=== PATIENT | female | born 1985 | race Caucasian/White ===

== ENCOUNTER 2023-11-04 11:50 | Emergency (ER) | payer OTHER, SELFPAY ==
[2023-11-04 11:56] VITALS: BP 136/98; PULSE 107; RESP 18; TEMP 36.7; O2SAT 100; BMI 25.6
--- NOTE | 2023-11-04 12:07 | ECG_ITS ---
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
--- NOTE | 2023-11-04 12:15 | ED.PSYCH1 ---
HPI - Psych General Chief Complaint: Anxiety Stated Complaint: MENTAL ISSUES Time Seen by Provider: 11/04/23 12:00 Source: Reports patient and family Mode of arrival: walk-in Limitations: Reports no limitations History of Present Illness HPI Narrative: This patient is here with her complaining of extreme stress and anxiety. She is dealt with depression and stress issues for many many years. She has been institutionalized in the past. She told her primary care doctor that she actually thought about taking her life. Currently she denies that but she says she just cannot deal with the situations in her life anymore. She Head: Some of her psych medicines discontinued several weeks ago because elevation of her liver function test and they did not want take any chances. She said that those tests have come back down to normal that she is aware of. She is requesting something for anxiety and stress right now. She admits to daily THC use she does not use alcohol products but she does use tobacco products. No other street drugs are used. Related Data Home Medications Medication Instructions Recorded Confirmed citalopram 40 mg tablet 40 mg PO DAILY 11/04/23 11/04/23 gabapentin 800 mg tablet 800 mg PO TID 11/04/23 11/04/23 lamotrigine 100 mg tablet 200 mg PO DAILY 11/04/23 11/04/23 (Lamictal) oxycodone-acetaminophen 5 mg-325 1 tab PO Q12H PRN pain 11/04/23 11/04/23 mg tablet trazodone 50 mg tablet 50 mg PO BEDTIME 11/04/23 11/04/23 Allergies Allergy/AdvReac Type Severity Reaction Status Date / Time Iodinated Contrast Media AdvReac Mild Verified 11/04/23 11:54 metoclopramide [From Reglan] AdvReac Mild Verified 11/04/23 11:54 prochlorperazine AdvReac Mild Verified 11/04/23 11:54 [From Compazine] [facility] Social History Smoking status: Current every day smoker Exam Narrative Exam Narrative: Patient is awake alert good hygiene maintains good eye contact has a normal affect at this time. She is not labile or irritated. Her is present in the room and they are interacting appropriately. On HEENT there is no evidence of meningeal irritation head injury or trauma. Pupillary light response is normal. She does not smell intoxicated. The neck is soft and supple. Her lungs are clear with no wheeze rales or rhonchi. Heart sounds are normal with no S3-S4 or murmur. She has no abdominal pain. Her trunk torso and extremities are atraumatic. Skin is warm and dry with no pallor or anemia. Neurological she has no focal neurological findings her ambulation and gait are normal. Cognition and memory are also good. Constitutional Vital Signs, click to edit/add: Last Vital Signs Temp 98.1 F 11/04/23 11:56 Pulse 107 H 11/04/23 11:56 Resp 18 11/04/23 11:56 BP 136/98 H 11/04/23 11:56 Pulse Ox 100 11/04/23 11:56 O2 Del Method Room Air 11/04/23 11:56 Course Vital Signs Vital signs: Vital Signs Temperature 98.1 F 11/04/23 11:56 Pulse Rate 107 H 11/04/23 11:56 Respiratory Rate 18 11/04/23 11:56 Blood Pressure 136/98 H 11/04/23 11:56 Pulse Oximetry 100 11/04/23 11:56 Oxygen Delivery Method Room Air 11/04/23 11:56 Temperature 98.1 F 11/04/23 11:56 Pulse Rate 107 H 11/04/23 11:56 Respiratory Rate 18 11/04/23 11:56 Blood Pressure 136/98 H 11/04/23 11:56 Pulse Oximetry 100 11/04/23 11:56 Oxygen Delivery Method Room Air 11/04/23 11:56 MDM - Psych MDM Narrative Medical decision making narrative: After examining her we did have her speak with a mental health professional. At this time she denies any interest in taking her life or harming others at this time. She is says that she wants her problems to go away. Her confirms that information. She then had a conversation with the [facility]. The [facility] spoke with the on-call physician and they are open to admission and advised that but they said they were not going to pink slip her. The is committed to me and the patient that he will stay with her for 25/04 and return should there be any problems. I also encouraged that she discontinue the use of marijuana products. Incidentally she does have opiates in her urine she says she was taking that for her arthritis pain it was prescribed by a physician Lab Data Labs: Lab Results 11/04/23 11/04/23 11/04/23 Range/Units 12:10 12:54 13:14 WBC 4.5 (4.0-11.0) 10^3/uL RBC 4.65 (4.20-5.40) 10^6/uL Hgb 14.2 (12.0-16.0) g/dL Hct 43.3 (36.0-48.0) % MCV 93.1 (81.0-99.0) fL MCH 30.5 (26.7-34.0) pg MCHC 32.8 (29.9-35.2) g/dL RDW 12.5 (11.0-15.0) % Plt Count 164 (150-450) 10^3/uL MPV 10.6 (9.5-13.5) fL Neut % (Auto) 40.5 L (43.0-75.0) % Lymph % (Auto) 44.7 (20.5-60.0) % [place] % (Auto) 11.3 (1.7-12.0) % Eos % (Auto) 3.1 (0.9-7.0) % Baso % (Auto) 0.4 (0.2-2.0) % Neut # (Auto) 1.8 (1.4-6.5) 10^3/uL Lymph # (Auto) 2.0 (1.2-3.8) 10^3/uL [place] # (Auto) 0.5 (0.3-0.8) 10^3/uL Eos # (Auto) 0.1 (0.0-0.7) 10^3/uL Baso # (Auto) 0.0 (0.0-0.1) 10^3/uL Abs Immat Gran (auto) 0.00 (0.00-0.03) 10^3/uL Imm/Tot Granulo (auto) 0.0 (0.0-0.5) % Sodium 133 L (136-145) mmol/L Potassium 4.1 (3.5-5.1) mmol/L Chloride 103 (98-107) mmol/L Carbon Dioxide 22.0 (21.0-32.0) mmol/L Anion Gap 12.1 BUN 6.0 L (7.0-18.0) mg/dL Creatinine 0.63 (0.55-1.02) mg/dL Est GFR ( Amer) >60 (>=60) Est GFR (Non-Af Amer) >60 (>=60) BUN/Creatinine Ratio 9.5 Glucose 76 (74-106) mg/dL Calcium 9.2 (8.5-10.1) mg/dL Total Bilirubin 0.3 (0.2-1.0) mg/dL AST <5 L (15-37) U/L ALT <6 L (14-59) U/L Alkaline Phosphatase 86 (46-116) U/L Total Protein 7.7 (6.4-8.2) g/dL Albumin <0.6 L (3.4-5.0) g/dL Globulin 7.1 g/dL Albumin/Globulin Ratio 0.1 Urine Color Lt. yellow (YELLOW) Urine Clarity Clear (CLEAR) Urine pH 6.5 (5.0-9.0) Ur Specific [place] <=1.005 A (1.005-1.025) Urine Protein Negative (NEG/TRACE) mg/dL Urine Glucose (UA) Negative (NEGATIVE) mg/dL Urine Ketones Negative (NEGATIVE) mg/dL Urine Occult Blood Negative (NEGATIVE) Urine Nitrite Negative (NEGATIVE) Urine Bilirubin Negative (NEGATIVE) Urine Urobilinogen 0.2 (0.2-1.0) EU/dL Ur Leukocyte Esterase Negative (NEGATIVE) Urine Opiates Screen Positive A (NEGATIVE) Ur Buprenorphine Scrn Negative (NEGATIVE) Ur Oxycodone Screen Negative (NEGATIVE) Urine Methadone Screen Negative (NEGATIVE) Acetaminophen <2.0 L (10.0-30.0) ug/mL Ur Barbiturates Screen Negative (NEGATIVE) U Tricyclic Antidepress Negative (NEGATIVE) Ur Phencyclidine Scrn Negative (NEGATIVE) Ur Amphetamines Screen Negative (NEGATIVE) U Methamphetamines Scrn Negative (NEGATIVE) U Benzodiazepines Scrn Positive A (NEGATIVE) Urine Cocaine Screen Negative (NEGATIVE) U Cannabinoids Screen Positive A (NEGATIVE) Ethanol Quant <3 mg/dL Discharge Plan Discharge Chief Complaint: Anxiety Clinical Impression: Anxiety Patient Disposition: Home, Self-Care Time of Disposition Decision: 15:42 Prescriptions / Home Meds: No Action lamotrigine [Lamictal] 100 mg tablet 200 mg PO DAILY citalopram 40 mg tablet 40 mg PO DAILY gabapentin 800 mg tablet 800 mg PO TID oxycodone-acetaminophen 5-325 mg tablet 1 tab PO Q12H PRN (Reason: pain) trazodone 50 mg tablet 50 mg PO BEDTIME Additional Instructions: Ativan 0.5 mg 3 times daily. Stay with your spouse 25 04, follow-up with [facility] next week, return for any problems Stand Alone Forms: Portal Instructions Referrals: Yadira Schmid MD [Primary Care Provider] - 1 week
[2023-11-04] MEDS: LORAZEPAM 2 MG/ML 1 ML VIAL IM (12:56)
[2023-11-04 13:02] LABS: Bilirubin Urine NEGATIVE (NEGATIVE); Blood Urine NEGATIVE (NEGATIVE); Clarity Urine CLEAR (CLEAR); Color Urine LT. YELLOW (YELLOW); Glucose Urine UA NEGATIVE (NEGATIVE); Ketones Urine NEGATIVE (NEGATIVE); Leukocyte Esterase Urine NEGATIVE (NEGATIVE); Nitrite Urine NEGATIVE (NEGATIVE); Protein Urine NEGATIVE (NEG/TRACE); Specific Gravity Urine <=1.005 (1.005-1.025); Urobilinogen Urine 0.2 EU/dL (0.2-1.0); pH Urine 6.5 (5.0-9.0)
[2023-11-04 13:03] LABS: Urine Microscopic Indicated NO
[2023-11-04 13:20] LABS: Alanine Aminotransferase <6 U/L (14-59); Albumin Globulin Ratio 0.1; Albumin Level <0.6 g/dL (3.4-5.0); Alkaline Phosphatase 86 U/L (46-116); Anion Gap 12.1; Aspartate Amino Transferase <5 U/L (15-37); BUN Creatinine Ratio 9.5; Bilirubin Total 0.3 mg/dL (0.2-1.0); Calcium 9.2 mg/dL (8.5-10.1); Chloride 103 mmol/L (98-107); Estimated GFR (African America >60 (>=60); Estimated GFR (Non-African Ame >60 (>=60); Globulin 7.1 g/dL; Glucose 76 mg/dL (74-106); Potassium 4.1 mmol/L (3.5-5.1); Sodium 133 mmol/L (136-145); Total Protein 7.7 g/dL (6.4-8.2)
[2023-11-04 13:21] LABS: Basophils Percent Auto 0.4 % (0.2-2.0); Eosinophils Absolute Auto 0.1 10^3/uL (0.0-0.7); Eosinophils Percent Auto 3.1 % (0.9-7.0); Hematocrit 43.3 % (36.0-48.0); Hemoglobin 14.2 g/dL (12.0-16.0); Lymphocytes Percent Auto 44.7 % (20.5-60.0); Mean Corpuscular HGB Conc 32.8 g/dL (29.9-35.2); Mean Corpuscular Hemoglobin 30.5 pg (26.7-34.0); Mean Corpuscular Volume 93.1 fL (81.0-99.0); Mean Platelet Volume 10.6 fL (9.5-13.5); Monocytes Absolute Auto 0.5 10^3/uL (0.3-0.8); Monocytes Percent Auto 11.3 % (1.7-12.0); Neutrophils Absolute Auto 1.8 10^3/uL (1.4-6.5); Neutrophils Percent Auto 40.5 % (43.0-75.0); Platelet Count 164 10^3/uL (150-450); Red Blood Count 4.65 10^6/uL (4.20-5.40); Red Cell Distribution Width 12.5 % (11.0-15.0); White Blood Count 4.5 10^3/uL (4.0-11.0)
[2023-11-04 13:23] LABS: Amphetamine Screen Urine NEGATIVE (NEGATIVE); Cannabinoid Screen Urine POSITIVE (NEGATIVE); Cocaine Screen Urine NEGATIVE (NEGATIVE); Methamphetamines Screen Urine NEGATIVE (NEGATIVE); Opiate Screen Urine POSITIVE (NEGATIVE); Phencyclidine Screen Urine NEGATIVE (NEGATIVE)
[2023-11-04 13:24] LABS: Barbiturates Screen Urine NEGATIVE (NEGATIVE); Benzodiazepines Screen Urine POSITIVE (NEGATIVE); Buprenorphine Screen Urine NEGATIVE (NEGATIVE); Methadone Screen Urine NEGATIVE (NEGATIVE); Oxycodone Screen Urine NEGATIVE (NEGATIVE); Tricyclic Antidepressant Urine NEGATIVE (NEGATIVE)
[2023-11-04 13:41] LABS: Ethanol <3 mg/dL
[2023-11-04 13:55] LABS: Acetaminophen <2.0 ug/mL (10.0-30.0)
[2023-11-04 15:45] VITALS: BP 115/74; PULSE 92; RESP 16; O2SAT 98
[2023-11-04 15:54] VITALS: BP 115/74; PULSE 85; RESP 16; O2SAT 98
== END 2023-11-04 15:59 | disposition home or self-care (01) ==
PROVIDERS: Emergency Provider Emergency Medicine Emergency Medical Services; PCP Family Medicine
DX: F41.9 Anxiety disorder, unspecified (principal); F12.90 Cannabis use, unspecified, uncomplicated; Z79.899 Other long term (current) drug therapy; F17.210 Nicotine dependence, cigarettes, uncomplicated
CPT/HCPCS: 36415; 80053; 80307; 80320; 80329; 81003; 85025; 87811; 93005; 96374; 99285; J2060

== ENCOUNTER 2024-01-30 11:19 | Emergency (ER) | payer OTHER, SELFPAY ==
[2024-01-30 11:22] VITALS: BP 117/83; PULSE 104; O2SAT 98; BMI 28.3
--- NOTE | 2024-01-30 11:40 | CT_ITS ---
The [address] [address] Patient Name: CRYS LAUREANO MRN: [id number] date: 1985 Sex: F Assigned Patient Location: ER Current Patient Location: ER Accession/Order Number: [id number] Exam Date: 01/30/2024 12:08 Report Date: 01/30/2024 12:56 At the request of: STEPHON URIBE Procedure: CT abdomen pelvis wo con EXAM: CT abdomen pelvis wo con HISTORY: Rt flank pain COMPARISON: CT abdomen and CT pelvis studies dated 08/12/2022 TECHNIQUE: CT abdomen and CT pelvis studies were performed without the use of intravenous contrast. FINDINGS: Small bilateral pleural effusions. Likely minimal atelectatic and/or fibrotic changes in the lower lung mark. Mild pleural thickening suggested on the left. Views of the liver and spleen fail to demonstrate evidence of focal mass in either organ. Patient is status post cholecystectomy. Pancreas and adrenal glands appear grossly unremarkable. Stomach appears grossly unremarkable. Bowel loops appear grossly unremarkable. Visualized vascular structures appear grossly intact. No lymphadenopathy in the retroperitoneum. Mild prominence of the right upper collecting system and proximal ureter similar to the prior study, no obvious obstructing calculus or mass. Correlate to exclude possible recently passed calculus from the right kidney. Correlate to exclude early and/or mild right pyelonephritis. No obvious renal calculus or mass on either side. Mild subcutaneous edema posteriorly. Pelvis: No evidence of ureteral or bladder calculus. No evidence of obstructive uropathy. No obvious bladder mass or wall thickening. Patient status post hysterectomy. No obvious adnexal mass. Small amount of free intraperitoneal fluid suggested superior to the bladder which is nonspecific. Perirectal fat planes appear grossly intact. Mild wall thickening of the sigmoid colon which may be artifactually created, correlate to exclude mild colitis. Visualized vascular structures appear grossly intact. No lymphadenopathy. The appendix is not identified, no obvious appendicitis. Postoperative sutures at the cecal base which may relate to prior appendectomy. Mild degenerative changes visualized lower dorsal spine with minimal degenerative changes in the lumbar spine. Calcifications in the posterior subcutaneous tissue on the left and to a lesser degree on the right compatible with injection granulomas. CT/CT abdomen pelvis wo con IMPRESSION: CT abdomen and CT pelvis studies demonstrate mild nonspecific wall thickening of the colon which may be artifactually created, correlate to exclude mild colitis. Small amount of free intraperitoneal fluid in the pelvis which is nonspecific. Mild right hydronephrosis and proximal right hydroureter similar to prior study which may be related to recently passed calculus, correlate to exclude early and/or mild pyelonephritis on the right. No obvious obstructing calculus or mass in the right ureter. Small bilateral pleural effusions. Mild subcutaneous edema posteriorly. Findings compatible with calcified injection granulomas in the posterior subcutaneous tissue at the pelvic level greater on the left as noted. Electronically authenticated by: JACINTO DAVIS Date: 01/30/2024 12:56
[2024-01-30 11:45] LABS: Basophils Absolute Auto 0.1 10^3/uL (0.0-0.1); Basophils Percent Auto 0.5 % (0.2-2.0); Eosinophils Absolute Auto 0.3 10^3/uL (0.0-0.7); Eosinophils Percent Auto 3.3 % (0.9-7.0); Hematocrit 41.9 % (36.0-48.0); Hemoglobin 13.8 g/dL (12.0-16.0); Immature Granulocytes Abs Auto 0.04 10^3/uL (0.00-0.03); Immature Granulocytes Pct Auto 0.4 % (0.0-0.5); Lymphocytes Absolute Auto 1.9 10^3/uL (1.2-3.8); Lymphocytes Percent Auto 18.4 % (20.5-60.0); Mean Corpuscular HGB Conc 32.9 g/dL (29.9-35.2); Mean Corpuscular Hemoglobin 30.2 pg (26.7-34.0); Mean Corpuscular Volume 91.7 fL (81.0-99.0); Mean Platelet Volume 9.5 fL (9.5-13.5); Monocytes Absolute Auto 0.4 10^3/uL (0.3-0.8); Monocytes Percent Auto 3.9 % (1.7-12.0); Neutrophils Absolute Auto 7.5 10^3/uL (1.4-6.5); Neutrophils Percent Auto 73.5 % (43.0-75.0); Platelet Count 252 10^3/uL (150-450); Red Blood Count 4.57 10^6/uL (4.20-5.40); Red Cell Distribution Width 12.8 % (11.0-15.0); White Blood Count 10.1 10^3/uL (4.0-11.0)
[2024-01-30 11:55] LABS: Bilirubin Urine NEGATIVE (NEGATIVE); Blood Urine LARGE (NEGATIVE); Clarity Urine CLEAR (CLEAR); Color Urine YELLOW (YELLOW); Glucose Urine UA NEGATIVE (NEGATIVE); Ketones Urine NEGATIVE (NEGATIVE); Leukocyte Esterase Urine NEGATIVE (NEGATIVE); Nitrite Urine NEGATIVE (NEGATIVE); Protein Urine NEGATIVE (NEG/TRACE); Urobilinogen Urine 0.2 EU/dL (0.2-1.0)
[2024-01-30 11:56] LABS: Urine Microscopic Indicated YES
[2024-01-30 11:57] LABS: HCG Qualitative Urine* NEGATIVE (NEGATIVE)
[2024-01-30] MEDS: MORPHINE SULFATE 2 MG/ML SYRINGE 1 MG IV (11:57)
[2024-01-30] MEDS: 0.9 % SODIUM CHLORIDE 1,000 ML 1000 ML IV (11:57)
[2024-01-30 11:58] LABS: Alanine Aminotransferase 38 U/L (14-59); Alkaline Phosphatase 121 U/L (46-116); Aspartate Amino Transferase 29 U/L (15-37); BUN Creatinine Ratio 14.7; Bilirubin Total 0.4 mg/dL (0.2-1.0); Calcium 9.6 mg/dL (8.5-10.1); Carbon Dioxide 29.8 mmol/L (21.0-32.0); Chloride 101 mmol/L (98-107); Estimated GFR (African America >60 (>=60); Estimated GFR (Non-African Ame >60 (>=60); Globulin 4.1 g/dL; Glucose 96 mg/dL (74-106); Potassium 3.8 mmol/L (3.5-5.1); Sodium 138 mmol/L (136-145); Total Protein 8.1 g/dL (6.4-8.2)
[2024-01-30 12:04] LABS: Amphetamine Screen Urine NEGATIVE (NEGATIVE); Barbiturates Screen Urine NEGATIVE (NEGATIVE); Benzodiazepines Screen Urine NEGATIVE (NEGATIVE); Buprenorphine Screen Urine NEGATIVE (NEGATIVE); Cannabinoid Screen Urine POSITIVE (NEGATIVE); Cocaine Screen Urine NEGATIVE (NEGATIVE); Methadone Screen Urine NEGATIVE (NEGATIVE); Methamphetamines Screen Urine NEGATIVE (NEGATIVE); Opiate Screen Urine NEGATIVE (NEGATIVE); Oxycodone Screen Urine NEGATIVE (NEGATIVE); Phencyclidine Screen Urine NEGATIVE (NEGATIVE); Tricyclic Antidepressant Urine NEGATIVE (NEGATIVE)
[2024-01-30 12:13] LABS: Bacteria Urine TRACE #/HPF (NONE SEEN); Cast Seen? NONE SEEN #/LPF (NONE SEEN); Crystals Seen? None Seen #/HPF (None Seen); Mucus Urine NONE SEEN (NONE SEEN); RBC Urine 20-50 #/HPF (0-2); Squamous Epithelial Cell Urine RARE #/LPF (NONE/RARE); Urine Culture Indicated NO; WBC Urine 0-2 #/HPF (NONE SEEN)
[2024-01-30] MEDS: ONDANSETRON PF 4 MG/2 ML VIAL IV (12:32)
[2024-01-30 12:35] VITALS: BP 102/64; PULSE 71; O2SAT 97
[2024-01-30] MEDS: OXYCODONE HCL/ACETAMINOPHEN 5MG/325MG 1 TAB PO (13:15)
--- NOTE | 2024-01-30 13:44 | ED_ITS ---
HPI - Abdominal Pain General Chief Complaint: Abdominal Pain Stated Complaint: ABDOMINAL/BACK PAIN Time Seen by Provider: 01/30/24 11:26 Source: patient Mode of arrival: walk-in Limitations: no limitations History of Present Illness HPI narrative: the pt is coming with 4-5 days of RT lower quadrant pain . The patient did had some nausea and vomiting but there is no diarrhea she mentioned no burning with urination. Related Data Home Medications ?Medication ?Instructions ?Recorded ?Confirmed citalopram 40 mg tablet 40 mg PO DAILY 11/04/23 11/04/23 gabapentin 800 mg tablet 800 mg PO TID 11/04/23 01/30/24 lamotrigine 100 mg tablet 200 mg PO DAILY 11/04/23 01/30/24 (Lamictal) trazodone 50 mg tablet 50 mg PO BEDTIME 11/04/23 01/30/24 docusate sodium 100 mg capsule 100 mg PO DAILY 01/30/24 01/30/24 hydroxyzine HCl 50 mg tablet 50 mg PO DAILY 01/30/24 01/30/24 omeprazole 20 mg capsule,delayed mg 01/30/24 release omeprazole 40 mg capsule,delayed 40 mg PO DAILY 01/30/24 01/30/24 release Previous Rx's ?Medication ?Instructions ?Recorded cephalexin 500 mg capsule 500 mg PO TID 7 days #21 caps 01/30/24 tramadol 50 mg tablet 50 mg PO BID PRN pain 2 days #4 01/30/24 tabs Allergies Allergy/AdvReac Type Severity Reaction Status Date / Time Iodinated Contrast Media AdvReac Mild Verified 01/30/24 11:25 metoclopramide [From Reglan] AdvReac Mild Verified 01/30/24 11:25 prochlorperazine AdvReac Mild Verified 01/30/24 11:25 [From Compazine] Review of Systems ROS Status of ROS 10 or more systems reviewed and unremark able except as noted in history and below PFSH PFS Social History Smoking status: Current every day smoker Exam Narrative Exam Narrative: Nurses notes and vital signs reviewed and patient is not hypoxic. General: Well-appearing and in no apparent distress. Skin: Warm, dry, no pallor noted. No rash. Head: Normocephalic, atraumatic. Neck: Supple, non-tender. Eye: Pupils are equal, round and EOMI. No scleral icterus. Ears, Nose, Mouth, and Throat: TM are clear, no nasal mucosal hypertrophy. Oral mucosa is moist, no posterior oropharynx erythema, uvula is mid-line Cardiovascular: Regular Rate and Rhythm without murmur, gallop or rub. Respiratory: No accessory muscle use or respiratory distress. Lungs are clear to auscultation, no wheezing, rales or rhonchi Chest Wall: no tenderness Back: No midline thoracic or lumbar vertebral tenderness. rt cva tenderness Musculoskeletal: normal ROM, no calf or popliteal tenderness, no lower extremity edema/swelling GI: Abdomen is soft, non-distended. Normal bowel sounds. No masses appreciated. No tenderness to palpation. No rebound, guarding, or rigidity noted. Neurological: A&O x4. No cranial nerve dysfunction observed. No truncal narciso [place]. Moves all extremities. Sensation intact. Psychiatric: Cooperative and interactive. Normal mood and affect. Constitutional Vital Signs, click to edit/add: Last Vital Signs Pulse 71 01/30/24 12:35 Resp 18 01/30/24 12:35 BP 102/64 01/30/24 12:35 Pulse Ox 97 01/30/24 12:35 O2 Del Method Room Air 01/30/24 12:35 Course Vital Signs Vital signs: Vital Signs Pulse Rate 104 H 01/30/24 11:22 Respiratory Rate 20 01/30/24 11:22 Blood Pressure 117/83 01/30/24 11:22 Pulse Oximetry 98 01/30/24 11:22 Oxygen Delivery Method Room Air 01/30/24 11:22 Pulse Rate 71 01/30/24 12:35 Respiratory Rate 18 01/30/24 12:35 Blood Pressure 102/64 01/30/24 12:35 Pulse Oximetry 97 01/30/24 12:35 Oxygen Delivery Method Room Air 01/30/24 12:35 MDM - Abdominal Pain MDM Narrative Medical decision making narrative: The patient CBC and chemistry showed no acute significant pathology but the urine did show some RBCs CAT scan of the abdomen and pelvis showed that the patient have some hydronephrosis that was seen on previous CAT scan and there is no kidney stone The patient instructed to follow-up with urology as outpatient as she already have an appointment she also was provided with Keflex as a coverage for possible urinary tract infection and tramadol for 2 days of pain management The patient is to follow up with primary care physician in next 2-3 days or to return to the emergency department should any of the signs or symptoms worsen or new symptoms develop. The patient agrees with the following Diagnosis and Treatment plan and the patient will be discharged home. Lab Data Labs: Lab Results 01/30/24 01/30/24 Range/Units 11:31 11:40 WBC 10.1 (4.0-11.0) 10^3/uL RBC 4.57 (4.20-5.40) 10^6/uL Hgb 13.8 (12.0-16.0) g/dL Hct 41.9 (36.0-48.0) % MCV 91.7 (81.0-99.0) fL MCH 30.2 (26.7-34.0) pg MCHC 32.9 (29.9-35.2) g/dL RDW 12.8 (11.0-15.0) % Plt Count 252 (150-450) 10^3/uL MPV 9.5 (9.5-13.5) fL Neut % (Auto) 73.5 (43.0-75.0) % Lymph % (Auto) 18.4 L (20.5-60.0) % [place] % (Auto) 3.9 (1.7-12.0) % Eos % (Auto) 3.3 (0.9-7.0) % Baso % (Auto) 0.5 (0.2-2.0) % Neut # (Auto) 7.5 H (1.4-6.5) 10^3/uL Lymph # (Auto) 1.9 (1.2-3.8) 10^3/uL [place] # (Auto) 0.4 (0.3-0.8) 10^3/uL Eos # (Auto) 0.3 (0.0-0.7) 10^3/uL Baso # (Auto) 0.1 (0.0-0.1) 10^3/uL Abs Immat Gran (auto) 0.04 H (0.00-0.03) 10^3/uL Imm/Tot Granulo (auto) 0.4 (0.0-0.5) % Sodium 138 (136-145) mmol/L Potassium 3.8 (3.5-5.1) mmol/L Chloride 101 (98-107) mmol/L Carbon Dioxide 29.8 (21.0-32.0) mmol/L Anion Gap 11.0 BUN 11.0 (7.0-18.0) mg/dL Creatinine 0.75 (0.55-1.02) mg/dL Est GFR ( Amer) >60 (>=60) Est GFR (Non-Af Amer) >60 (>=60) BUN/Creatinine Ratio 14.7 Glucose 96 (74-106) mg/dL Calcium 9.6 (8.5-10.1) mg/dL Total Bilirubin 0.4 (0.2-1.0) mg/dL AST 29 (15-37) U/L ALT 38 (14-59) U/L Alkaline Phosphatase 121 H (46-116) U/L Total Protein 8.1 (6.4-8.2) g/dL Albumin 4.0 (3.4-5.0) g/dL Globulin 4.1 g/dL Albumin/Globulin Ratio 1.0 Urine Color Yellow (YELLOW) Urine Clarity Clear (CLEAR) Urine pH 8.0 (5.0-9.0) Ur Specific [place] 1.010 (1.005-1.025) Urine Protein Negative (NEG/TRACE) mg/dL Urine Glucose (UA) Negative (NEGATIVE) mg/dL Urine Ketones Negative (NEGATIVE) mg/dL Urine Occult Blood Large A (NEGATIVE) Urine Nitrite Negative (NEGATIVE) Urine Bilirubin Negative (NEGATIVE) Urine Urobilinogen 0.2 (0.2-1.0) EU/dL Ur Leukocyte Esterase Negative (NEGATIVE) Urine RBC 20-50 A (0-2) #/HPF Urine WBC 0-2 A (NONE SEEN) #/HPF Ur Squamous Epith Cells Rare (NONE/RARE) #/LPF Urine Crystals None seen (None Seen) #/HPF Urine Bacteria Trace A (NONE SEEN) #/HPF Urine Casts None seen (NONE SEEN) #/LPF Urine Mucus None seen (NONE SEEN) Ur Culture Indicated? No Urine HCG, Qual Negative (NEGATIVE) Urine Opiates Screen Negative (NEGATIVE) Ur Buprenorphine Scrn Negative (NEGATIVE) Ur Oxycodone Screen Negative (NEGATIVE) Urine Methadone Screen Negative (NEGATIVE) Ur Barbiturates Screen Negative (NEGATIVE) U Tricyclic Antidepress Negative (NEGATIVE) Ur Phencyclidine Scrn Negative (NEGATIVE) Ur Amphetamines Screen Negative (NEGATIVE) U Methamphetamines Scrn Negative (NEGATIVE) U Benzodiazepines Scrn Negative (NEGATIVE) Urine Cocaine Screen Negative (NEGATIVE) U Cannabinoids Screen Positive A (NEGATIVE) Discharge Plan Discharge Stand Alone Forms: Portal Instructions Chief Complaint: Abdominal Pain Clinical Impression: Acute flank pain Patient Disposition: Home, Self-Care Time of Disposition Decision: 13:06 Condition: Good Prescriptions / Home Meds: New tramadol 50 mg tablet 50 mg PO BID PRN (Reason: pain) 2 Days Qty: 4 0RF cephalexin 500 mg capsule 500 mg PO TID 7 Days Qty: 21 0RF No Action lamotrigine [Lamictal] 100 mg tablet 200 mg PO DAILY citalopram 40 mg tablet 40 mg PO DAILY gabapentin 800 mg tablet 800 mg PO TID trazodone 50 mg tablet 50 mg PO BEDTIME docusate sodium 100 mg capsule 100 mg PO DAILY hydroxyzine HCl 50 mg tablet 50 mg PO DAILY omeprazole 40 mg capsule,delayed release(DR/EC) 40 mg PO DAILY omeprazole 20 mg capsule,delayed release(DR/EC) Print Language: Brazilian Instructions: Flank Pain (ED) Referrals: Yadira Schmid MD [Primary Care Provider] - 1 week Discharge Date/Time: 01/30/24 13:17
== END 2024-01-30 13:17 | disposition home or self-care (01) ==
PROVIDERS: Emergency Provider Emergency Medicine; PCP Family Medicine
DX: Z79.899 Other long term (current) drug therapy (principal); F17.210 Nicotine dependence, cigarettes, uncomplicated; R10.9 Unspecified abdominal pain
CPT/HCPCS: 36415; 74176; 80053; 80307; 81001; 84703; 85025; 96361; 96374; 96375; 99284

== ENCOUNTER 2024-09-10 10:50 | Emergency (ER) | payer OTHER, SELFPAY ==
[2024-09-10 10:53] VITALS: BP 128/91; PULSE 94; TEMP 36.6; O2SAT 99; BMI 25.2
--- NOTE | 2024-09-10 11:07 | XR_ITS ---
The [place] [id number] Patient Name: CRYS LAUREANO MRN: [id number] date: 1985 Sex: F Assigned Patient Location: ER Current Patient Location: ER Accession/Order Number: [id number] Exam Date: 09/10/2024 11:09 Report Date: 09/10/2024 11:46 At the request of: BHARATH VIDAL Procedure: XR thoracic spine 3V EXAMINATION: XR lumbar spine min 4V, XR thoracic spine 3V HISTORY: fall , back pain COMPARISON: CT abdomen pelvis 01/30/2024, XR chest 08/12/2022 FINDINGS: BONES: Moderate loss of height of approximately T9 vertebral body. DISC SPACES: No significant disc height narrowing, subluxation, or endplate abnormality. PARASPINOUS: Negative. No paraspinous abnormality is seen. OTHER: Negative. XR/XR thoracic spine 3V IMPRESSION: 1. T9 moderate compression fracture; age indeterminant but new compared to 08/12/2022 chest x-ray. 2. No acute abnormality or significant degenerative changes of the lumbar spine. Electronically authenticated by: LILLY MEDINA Date: 09/10/2024 11:46
--- NOTE | 2024-09-10 11:07 | XR_ITS ---
The [place] [address] Patient Name: CRYS LAUREANO MRN: [id number] date: 1985 Sex: F Assigned Patient Location: ER Current Patient Location: ER Accession/Order Number: [id number] Exam Date: 09/10/2024 11:08 Report Date: 09/10/2024 11:46 At the request of: BHARATH VIDAL Procedure: XR lumbar spine min 4V EXAMINATION: XR lumbar spine min 4V, XR thoracic spine 3V HISTORY: fall , back pain COMPARISON: CT abdomen pelvis 01/30/2024, XR chest 08/12/2022 FINDINGS: BONES: Moderate loss of height of approximately T9 vertebral body. DISC SPACES: No significant disc height narrowing, subluxation, or endplate abnormality. PARASPINOUS: Negative. No paraspinous abnormality is seen. OTHER: Negative. XR/XR lumbar spine min 4V IMPRESSION: 1. T9 moderate compression fracture; age indeterminant but new compared to 08/12/2022 chest x-ray. 2. No acute abnormality or significant degenerative changes of the lumbar spine. Electronically authenticated by: LILLY MEDINA Date: 09/10/2024 11:46
--- NOTE | 2024-09-10 11:07 | XR_ITS ---
The [address] [address] Patient Name: CRYS LAUREANO MRN: [id number] date: 1985 Sex: F Assigned Patient Location: ER Current Patient Location: ER Accession/Order Number: [id number] Exam Date: 09/10/2024 11:10 Report Date: 09/10/2024 11:40 At the request of: BHARATH VIDAL Procedure: XR hip RT 2V w/ pelvis PROCEDURE: XR hip RT 2V w/ pelvis HISTORY: fall , pain COMPARISON: CT abdomen pelvis 01/30/2024 FINDINGS: BONES:No fracture, dislocation, bone lesion. Stable small calcification along superior rim of right acetabulum (also seen on prior CT study) favoring developing degenerative osteophyte versus sequela of remote injury. SOFT TISSUES:Dense calcification projecting over upper left pelvis is a calcified granuloma within posterior gluteal tissues. EFFUSION:None visible. OTHER: Negative. XR/XR hip RT 2V w/ pelvis IMPRESSION: 1. No acute bone abnormality. Electronically authenticated by: LILLY MEDINA Date: 09/10/2024 11:40
--- NOTE | 2024-09-10 11:09 | ED_ITS ---
HPI HPI - General Adult General Chief complaint: Back Pain/Injury Stated complaint: back pain Time Seen by Provider: 09/10/24 10:56 Source: patient Mode of arrival: walk-in Limitations: no limitations History of Present Illness HPI narrative: Patient presented to the emergency department for evaluation of hip and back pain. Patient states that she was here visiting someone, will come to the parking lot, to go [place] in the car and tripped over the sidewalk. Patient states that she landed on the right side of her hip. States that her back twisted in the process and now she has pain in the right side of the thoracic back. No numbness, tingling, weakness, bowel or bladder incontinence, has been ambulating well since, ambulated into the emergency department Related Data Home Medications ?Medication ?Instructions ?Recorded ?Confirmed citalopram 40 mg tablet 40 mg PO DAILY 11/04/23 11/04/23 gabapentin 800 mg tablet 800 mg PO TID 11/04/23 01/30/24 lamotrigine 100 mg tablet 200 mg PO DAILY 11/04/23 01/30/24 (Lamictal) trazodone 50 mg tablet 50 mg PO BEDTIME 11/04/23 01/30/24 docusate sodium 100 mg capsule 100 mg PO DAILY 01/30/24 01/30/24 hydroxyzine HCl 50 mg tablet 50 mg PO DAILY 01/30/24 01/30/24 omeprazole 20 mg capsule,delayed mg 01/30/24 release omeprazole 40 mg capsule,delayed 40 mg PO DAILY 01/30/24 01/30/24 release Previous Rx's ?Medication ?Instructions ?Recorded cephalexin 500 mg capsule 500 mg PO TID 7 days #21 caps 01/30/24 tramadol 50 mg tablet 50 mg PO BID PRN pain 2 days #4 01/30/24 tabs hydrocodone 5 mg-acetaminophen 325 1 tab PO Q6H PRN pain #14 tabs 09/10/24 mg tablet naproxen 500 mg tablet 500 mg PO Q12H PRN pain #20 tabs 09/10/24 Allergies Allergy/AdvReac Type Severity Reaction Status Date / Time Iodinated Contrast Media AdvReac Mild Verified 01/30/24 11:25 metoclopramide (From Reglan) AdvReac Mild Verified 01/30/24 11:25 prochlorperazine (From AdvReac Mild Verified 01/30/24 11:25 Compazine) Opioid HPI Opioid Management Most Recent Opioid Data: Last Pain Scale 8 09/10/24 11:24 09/10/24 Last MAR Pain Assessment 09/10/24 11:24 Ur Phencyclidine Scrn Negative (NEGATIVE) 01/30/24 11:40 0406/26 Review of Systems ROS Narrative Negative unless otherwise stated in HPI PFSH PFSH Social History Smoking status: Current every day smoker Little interest or pleasure in doing things: not at all Feeling down, depressed, or hopeless: not at all Exam Narrative Exam Narrative: General: NAD, AAOx3, no distress Neck: Supple, no tenderness Back: Paraspinal tenderness to the mid thoracic as well as lower thoracic approximately T10 tenderness midline, lumbar pain on the right side paraspinal, positive EHL bilaterally, normal distal reflexes, sensation, no perineal or saddle anesthesia, normal rectal tone reported Ext: No abnormal range of motion, no swelling. 5 out of 5 strength, no numbness, tingling, weakness Neuro: Speech is clear and appropriate. Normal level of consciousness. Gait and coordination are normal. 5/5 strength in all extremities. Constitutional Vital Signs, click to edit/add: Last Vital Signs Temp 98 F 09/10/24 10:53 Pulse 94 H 09/10/24 10:53 Resp 18 09/10/24 10:53 BP 128/91 09/10/24 10:53 Pulse Ox 99 09/10/24 10:53 O2 Del Method Room Air 09/10/24 10:53 Course Vital Signs Vital signs: Vital Signs Temperature 98 F 09/10/24 10:53 Pulse Rate 94 H 09/10/24 10:53 Respiratory Rate 18 09/10/24 10:53 Blood Pressure 128/91 09/10/24 10:53 Pulse Oximetry 99 09/10/24 10:53 Oxygen Delivery Method Room Air 09/10/24 10:53 Temperature 98 F 09/10/24 10:53 Pulse Rate 94 H 09/10/24 10:53 Respiratory Rate 18 09/10/24 10:53 Blood Pressure 128/91 09/10/24 10:53 Pulse Oximetry 99 09/10/24 10:53 Oxygen Delivery Method Room Air 09/10/24 10:53 Medical Decision Making [facility] Narrative Medical decision making narrative: Patient presenting to the emergency department for evaluation of the above- stated complaint., Mechanical fall while in a parking lot of the emergency department. Pain in the right hip, was able to ambulate into the emergency department. Low lumbar on the right side, as well as mid to low paraspinal and fine X-rays done showing moderate compression fracture of T9. Advanced guidance has been given. Vss, pex is benign at this time. Pt to fu with pcp 1-2 days for reeval, rter should sx worsen, persist or become worrysome in any way. All incidental laboratory studies, EKG, radiologic findings have been noted and discussed with patient. Patient was reevaluated with a benign exam at this time. Dr. Obando follow-up was given, patient to call today. Pt expressed understanding and agreement with plan of care at this time. Will fu as planned. Pt stable for discharge. . Discharge Plan Discharge Chief Complaint: Back Pain/Injury Clinical Impression: Fall, Compression fracture of T9 vertebra Patient Disposition: Home, Self-Care Time of Disposition Decision: 12:01 Prescriptions / Home Meds: New hydrocodone-acetaminophen 5-325 mg tablet 1 tab PO Q6H PRN (Reason: pain) Qty: 14 0RF naproxen 500 mg tablet 500 mg PO Q12H PRN (Reason: pain) Qty: 20 0RF No Action lamotrigine [Lamictal] 100 mg tablet 200 mg PO DAILY citalopram 40 mg tablet 40 mg PO DAILY gabapentin 800 mg tablet 800 mg PO TID trazodone 50 mg tablet 50 mg PO BEDTIME docusate sodium 100 mg capsule 100 mg PO DAILY hydroxyzine HCl 50 mg tablet 50 mg PO DAILY omeprazole 40 mg capsule,delayed release(DR/EC) 40 mg PO DAILY omeprazole 20 mg capsule,delayed release(DR/EC) tramadol 50 mg tablet 50 mg PO BID PRN (Reason: pain) 2 Days Qty: 4 0RF cephalexin 500 mg capsule 500 mg PO TID 7 Days Qty: 21 0RF Print Language: Telugu Additional Instructions: Follow-up with your PCP in the next 1 to 2 days. Return to the emergency department should symptoms worsen or become worrisome in any way. Follow-up with orthospine as discussed Referrals: Physician,Non-Staff, [Primary Care Provider] - 1 week Jaren Silva MD [Physician] - As soon as possible
[2024-09-10] MEDS: KETOROLAC TROMETHAMINE 30 MG/ML VIAL 15 MG IM (11:24)
[2024-09-10] MEDS: HYDROCODONE/ACET 5-325 MG TABLET 1 TAB PO (12:13)
== END 2024-09-10 12:18 | disposition home or self-care (01) ==
PROVIDERS: Emergency Provider Emergency Medicine
DX: S22.079A Unspecified fracture of T9-T10 vertebra, initial encounter for closed fracture (principal); F17.200 Nicotine dependence, unspecified, uncomplicated; W01.0XXA Fall on same level from slipping, tripping and stumbling without subsequent striking against object, initial encounter; X50.1XXA Overexertion from prolonged static or awkward postures, initial encounter
CPT/HCPCS: 72072; 72110; 73502; 96372; 99284; J1885

== ENCOUNTER 2025-01-26 11:59 | Emergency (ER) | payer OTHER, SELFPAY ==
[2025-01-26 12:09] VITALS: BP 132/89; PULSE 96; TEMP 36.8; O2SAT 99; BMI 28.7
--- NOTE | 2025-01-26 12:15 | ED_ITS ---
HPI HPI - General Adult General Chief complaint: Back Pain/Injury Stated complaint: FLANK PAIN BLOOD IN URINE Time Seen by Provider: 01/26/25 12:00 Source: patient Mode of arrival: Wheelchair Limitations: no limitations History of Present Illness HPI narrative: 39-year-old female presents for left flank pain. No injury or pain on the right side. She seems to have had it for 3 days. In reviewing her electronic health record it appears that she has a history of hydronephrosis and was recommended follow-up with a urologist. She has not seen one in 5 years. Related Data Home Medications ?Medication ?Instructions ?Recorded ?Confirmed gabapentin 800 mg tablet 800 mg PO TID 11/04/23 01/26/25 hydroxyzine HCl 50 mg tablet 50 mg PO DAILY 01/30/24 01/26/25 Previous Rx's ?Medication ?Instructions ?Recorded methocarbamol 500 mg tablet 500 mg PO Q8H PRN pain #20 tabs 01/26/25 Allergies Allergy/AdvReac Type Severity Reaction Status Date / Time Iodinated Contrast Media AdvReac Mild Verified 01/30/24 11:25 metoclopramide (From Reglan) AdvReac Mild Verified 01/30/24 11:25 prochlorperazine (From AdvReac Mild Verified 01/30/24 11:25 Compazine) Opioid HPI Opioid Management Most Recent Opioid Data: Last Pain Scale 7 01/26/25 12:26 01/26/25 Last DEC Pain Assessment 01/26/25 12:26 Ur Phencyclidine Scrn Negative (NEGATIVE) 01/30/24 11:40 01/02 06/26 Review of Systems ROS Narrative A ten point review of systems is negative except as noted above. PFSH PFSH Social History Smoking status: Current every day smoker Little interest or pleasure in doing things: not at all Feeling down, depressed, or hopeless: not at all Exam Narrative Exam Narrative: Nurses note and vital signs reviewed and patient is not hypoxic. General: The patient appears well and in no apparent distress. Patient is resting comfortably on cart. Skin: Warm, dry, no pallor noted. There is no rash noted. Head: Normocephalic, atraumatic Eye: Normal conjunctiva, no drainage Ears, Nose, Mouth, and Throat: oral mucosa is moist. Nares patent. Cardiovascular: Regular Rate and Rhythm Respiratory: Patient is in no distress, no accessory muscle use, lungs are clear to auscultation, no wheezing, rales or rhonchi Back: non-tender, no CVA tenderness bilaterally to percussion. GI: Soft and nontender Musculoskeletal: The patient has no evidence of calf tenderness, no pitting edema, symmetrical pulses noted bilaterally Neurological: A&O, normal speech Psychiatric: Cooperative Constitutional Vital Signs, click to edit/add: Last Vital Signs Temp 98.2 F 01/26/25 12:09 Pulse 96 H 01/26/25 12:09 Resp 18 01/26/25 12:09 BP 132/89 01/26/25 12:09 Pulse Ox 99 01/26/25 12:09 O2 Del Method Room Air 01/26/25 12:09 Course Vital Signs Vital signs: Vital Signs Temperature 98.2 F 01/26/25 12:09 Pulse Rate 96 H 01/26/25 12:09 Respiratory Rate 18 01/26/25 12:09 Blood Pressure 132/89 01/26/25 12:09 Pulse Oximetry 99 01/26/25 12:09 Oxygen Delivery Method Room Air 01/26/25 12:09 Temperature 98.2 F 01/26/25 12:09 Pulse Rate 96 H 01/26/25 12:09 Respiratory Rate 18 01/26/25 12:09 Blood Pressure 132/89 01/26/25 12:09 Pulse Oximetry 99 01/26/25 12:09 Oxygen Delivery Method Room Air 01/26/25 12:09 Medical Decision Making MDM Narrative Medical decision making narrative: The patient has decided to leave without completing her treatment. We are awaiting the result of her CT scan. She is fully able to make medical decisions for herself and is leaving without completing treatment, AGAINST MEDICAL ADVICE. She was instructed to have follow-up with urology which she has not been doing despite being told to do so on numerous occasions. Differential Diagnosis Differential Diagnosis: Muscle pain, kidney stone, UTI Lab Data Lab results reviewed: Yes I reviewed the patient's lab results Labs: Lab Results 01/26/25 01/26/25 Range/Units 12:20 12:23 WBC 9.1 (4.0-11.0) 10^3/uL RBC 4.51 (4.20-5.40) 10^6/uL Hgb 14.3 (12.0-16.0) g/dL Hct 42.2 (36.0-48.0) % MCV 93.6 (81.0-99.0) fL MCH 31.7 (26.7-34.0) pg MCHC 33.9 (29.9-35.2) g/dL RDW 12.6 (11.0-15.0) % Plt Count 185 (150-450) 10^3/uL MPV 10.5 (9.5-13.5) fL Neut % (Auto) 50.1 (43.0-75.0) % Lymph % (Auto) 39.9 (20.5-60.0) % [place] % (Auto) 7.0 (1.7-12.0) % Eos % (Auto) 2.6 (0.9-7.0) % Baso % (Auto) 0.3 (0.2-2.0) % Neut # (Auto) 4.5 (1.4-6.5) 10^3/uL Lymph # (Auto) 3.6 (1.2-3.8) 10^3/uL [place] # (Auto) 0.6 (0.3-0.8) 10^3/uL Eos # (Auto) 0.2 (0.0-0.7) 10^3/uL Baso # (Auto) 0.0 (0.0-0.1) 10^3/uL Abs Immat Gran (auto) 0.01 (0.00-0.03) 10^3/uL Imm/Tot Granulo (auto) 0.1 (0.0-0.5) % Sodium 142 (136-145) mmol/L Potassium 3.1 L (3.5-5.1) mmol/L Chloride 104 (98-107) mmol/L Carbon Dioxide 29.4 (21.0-32.0) mmol/L Anion Gap 11.7 BUN 11.0 (7.0-18.0) mg/dL Creatinine 0.76 (0.55-1.02) mg/dL Est GFR ( Amer) >60 (>=60 mL/min/1.73m^2) Est GFR (Non-Af Amer) >60 (>=60 mL/min/1.73m^2) BUN/Creatinine Ratio 14.5 Glucose 54 L (74-106) mg/dL Calcium 9.0 (8.5-10.1) mg/dL Urine Color Lt. yellow (YELLOW) Urine Clarity Clear (CLEAR) Urine pH 6.0 (5.0-9.0) Ur Specific [place] 1.015 (1.005-1.025) Urine Protein Negative (NEG/TRACE) mg/dL Urine Glucose (UA) Negative (NEGATIVE) mg/dL Urine Ketones Negative (NEGATIVE) mg/dL Urine Occult Blood Large A (NEGATIVE) Urine Nitrite Negative (NEGATIVE) Urine Bilirubin Negative (NEGATIVE) Urine Urobilinogen 0.2 (0.2-1.0) EU/dL Ur Leukocyte Esterase Small A (NEGATIVE) Urine RBC 20-50 A (0-2) #/HPF Urine WBC 2-5 A (NONE SEEN) #/HPF Ur Squamous Epith Cells Few A (NONE/RARE) #/LPF Urine Crystals None seen (None Seen) #/HPF Urine Bacteria Trace A (NONE SEEN) #/HPF Urine Casts None seen (NONE SEEN) #/LPF Urine Mucus None seen (NONE SEEN) Urine HCG, Qual Negative (NEGATIVE) Discharge Plan Discharge Stand Alone Forms: Portal Instructions Chief Complaint: Back Pain/Injury Clinical Impression: Flank pain Patient Disposition: Left Against Medical Advice Time of Disposition Decision: 14:40 Condition: Good Mode of Transportation: Private Vehicle Prescriptions / Home Meds: New methocarbamol 500 mg tablet 500 mg PO Q8H PRN (Reason: pain) Qty: 20 0RF No Action gabapentin 800 mg tablet 800 mg PO TID hydroxyzine HCl 50 mg tablet 50 mg PO DAILY Print Language: Lithuanian Instructions: Flank Pain (ED) Referrals: Physician,Non-StaffMD [Primary Care Provider] - 1 week Min Westfall MD [Physician] - 1 week
[2025-01-26] MEDS: KETOROLAC TROMETHAMINE 30 MG/ML VIAL IVP (12:26)
[2025-01-26] MEDS: ONDANSETRON PF 4 MG/2 ML VIAL IV ×2 (12:27→13:10)
[2025-01-26 12:36] LABS: Basophils Percent Auto 0.3 % (0.2-2.0); Eosinophils Absolute Auto 0.2 10^3/uL (0.0-0.7); Eosinophils Percent Auto 2.6 % (0.9-7.0); Hematocrit 42.2 % (36.0-48.0); Hemoglobin 14.3 g/dL (12.0-16.0); Immature Granulocytes Abs Auto 0.01 10^3/uL (0.00-0.03); Immature Granulocytes Pct Auto 0.1 % (0.0-0.5); Lymphocytes Absolute Auto 3.6 10^3/uL (1.2-3.8); Lymphocytes Percent Auto 39.9 % (20.5-60.0); Mean Corpuscular HGB Conc 33.9 g/dL (29.9-35.2); Mean Corpuscular Hemoglobin 31.7 pg (26.7-34.0); Mean Corpuscular Volume 93.6 fL (81.0-99.0); Mean Platelet Volume 10.5 fL (9.5-13.5); Monocytes Absolute Auto 0.6 10^3/uL (0.3-0.8); Neutrophils Absolute Auto 4.5 10^3/uL (1.4-6.5); Neutrophils Percent Auto 50.1 % (43.0-75.0); Platelet Count 185 10^3/uL (150-450); Red Blood Count 4.51 10^6/uL (4.20-5.40); Red Cell Distribution Width 12.6 % (11.0-15.0); White Blood Count 9.1 10^3/uL (4.0-11.0)
[2025-01-26 12:37] LABS: Bilirubin Urine NEGATIVE (NEGATIVE); Blood Urine LARGE (NEGATIVE); Clarity Urine CLEAR (CLEAR); Color Urine LT. YELLOW (YELLOW); Glucose Urine UA NEGATIVE (NEGATIVE); Ketones Urine NEGATIVE (NEGATIVE); Leukocyte Esterase Urine SMALL (NEGATIVE); Nitrite Urine NEGATIVE (NEGATIVE); Protein Urine NEGATIVE (NEG/TRACE); Specific Gravity Urine 1.015 (1.005-1.025); Urobilinogen Urine 0.2 EU/dL (0.2-1.0)
[2025-01-26 12:41] LABS: HCG Qualitative Urine* NEGATIVE (NEGATIVE); Internal Control Within Normal Limits
[2025-01-26 12:46] LABS: Anion Gap 11.7; BUN Creatinine Ratio 14.5; Carbon Dioxide 29.4 mmol/L (21.0-32.0); Chloride 104 mmol/L (98-107); Estimated GFR (African America >60 (>=60 mL/min/1.73m^2); Estimated GFR (Non-African Ame >60 (>=60 mL/min/1.73m^2); Glucose 54 mg/dL (74-106); Potassium 3.1 mmol/L (3.5-5.1); Sodium 142 mmol/L (136-145)
[2025-01-26 12:48] LABS: Bacteria Urine TRACE #/HPF (NONE SEEN); Cast Seen? NONE SEEN #/LPF (NONE SEEN); Crystals Seen? None Seen #/HPF (None Seen); Mucus Urine NONE SEEN (NONE SEEN); RBC Urine 20-50 #/HPF (0-2); Squamous Epithelial Cell Urine FEW #/LPF (NONE/RARE)
== END 2025-01-26 14:50 | disposition left against medical advice (07) ==
PROVIDERS: Emergency Provider Emergency Medicine
DX: R10.9 Unspecified abdominal pain (principal); F17.200 Nicotine dependence, unspecified, uncomplicated; Z90.49 Acquired absence of other specified parts of digestive tract; Z90.710 Acquired absence of both cervix and uterus
CPT/HCPCS: 36415; 74176; 80048; 81001; 84703; 85025; 87086; 96374; 96375; 96376; 99285; J1885; J2405